=== PATIENT | male | born 1980 | race Caucasian/White ===

== ENCOUNTER 2019-02-16 10:27 | Outpatient (CLI) | payer OTHER ==
--- NOTE | 2019-02-16 10:41 | RAD ---
Exam:Right ankle 3 views HISTORY: Acute pain. COMPARISON: None FINDINGS: No significant soft tissue swelling. No fracture or malalignment. Intact ankle mortise. IMPRESSION: Unremarkable 3 views right ankle.
== END 2019-02-16 10:28 | disposition home or self-care (01) ==
LOC: SCSRAD 10:27
PROVIDERS: ATTEND Nurse Practitioner Family
DX: M25.571 Pain in right ankle and joints of right foot (principal)